=== PATIENT | male | born 1985 | race Caucasian/White ===

== ENCOUNTER → 2021-02-03 08:17 | Outpatient (CLI) | payer OTHER, SELFPAY | PROVIDERS: PCP Student in an Organized Health Care Education/Training Program; Visit Provider Family Medicine | DX: Z23 Encounter for immunization (principal) ==

== ENCOUNTER 2021-08-01 16:28 | Emergency (ER) | payer BC, SELFPAY ==
[2021-08-01 16:30] VITALS: BP 120/74; PULSE 61; RESP 18; TEMP 36.6; O2SAT 100; BMI 23.4
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
--- NOTE | 2021-08-01 16:45 | RAD_ITS ---
INDICATION: Trauma EXAMINATION/TECHNIQUE: X-RAY - XR Chest 1 View COMPARISON: None. FINDINGS: The lungs are clear. The cardiomediastinal silhouette is unremarkable. No pleural effusion or pneumothorax. No acute osseous abnormalities. RAD/Chest 1 View (Portable) IMPRESSION: No acute radiographic abnormalities. Electronically Signed: Sunny Norton MD at 18:20 EDT ,
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
[2021-08-01] MEDS: 0.9% Normal Saline 1,000 ML 999 ML IV (17:00)
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
[2021-08-01 17:29] LABS: Absolute Lymphocyte Count 1.69 X10^3/uL (0.83-4.51); Absolute Neutrophil Count 5.5 X10^3/uL (2.0-7.7); Basophil# 0.02 X10^3/uL; Basophil% 0.3 % (0-1); Eosinophil# 0.07 X10^3/uL; Eosinophils% 0.9 % (0-5); Hemoglobin 14.8 g/dL (13.0-16.5); Lymphocyte # 1.69 X10^3/ul (0.83-4.51); Lymphocyte % 21.9 % (19-41); Mean Corp Hgb Conc 34.4 g/dL (32-36); Mean Corpuscular Hgb 29.1 pg (27.0-32.0); Mean Corpuscular Volume 84.5 fL (80-94); Mean Platelet Vol. 12.1 fl (6.2-12.0); Monocyte# 0.38 X10^3/uL; Monocyte% 4.9 % (0-10); NRBC Flagged by Analyzer 0 % (0-5); Neutrophil # 5.52 X10^3/uL (2.7-7.7); Neutrophil % 71.7 % (47-70); Platelet Count 158 K/mm3 (150-450); RBC Distribution Width CV 11.9 % (11.6-14.6); RBC Distribution Width SD 36.7 fl (35.1-43.9); Red Blood Count 5.09 M/mm3 (4.6-6.2); White Blood Count 7.7 K/mm3 (4.4-11.0)
[2021-08-01 17:48] LABS: AST(SGOT) 29 U/L (15-37); Alanine Aminotransfer ALT/SGPT 36 U/L (16-61); Albumin, Serum 4.2 g/dL (3.2-5.0); Alkaline Phosphatase 66 U/L (45-117); Anion Gap 8 (5-15); BUN 26 mg/dL (7-18); BUN/Creat Ratio 20.5 RATIO (10-20); Bilirubin, Direct 0.21 mg/dL (0.00-0.30); Calcium,Total 9.4 mg/dL (8.5-10.1); Chloride 106 mmol/L (98-107); Creatinine, Serum 1.27 mg/dL (0.70-1.30); EST Glomerular Filtration Rate 68 mL/min (>60); Est Glom Filt Rate - Afr Amer 83 mL/min (>60); Estimated Creatinine Clearance 81.18 ml/min; Globulin 3.3 g/dL (2.2-4.2); Glucose 107 mg/dL (74-106); Potassium 3.4 mmol/L (3.5-5.1); Protein, Total 7.5 g/dL (6.4-8.2); Sodium Level 141 mmol/L (136-145)
[2021-08-01] MEDS: Lidocaine 1% /Epi 1:100 (20ml) 20 ML Vial INFILT (18:05)
--- NOTE | 2021-08-01 18:19 | ED.VIS.FALL ---
HPI HPI - Fall History of Present Illness Chief Complaint: Trauma PFSH PFSH Home Medications escitalopram oxalate [Lexapro] 10 mg PO DAILY 08/01/21 [History Last Taken Unknown] Allergy/AdvReac Type Severity Reaction Status Date / Time Penicillins [PCN] Allergy Hives Verified 08/01/21 16:29 Surgical History [place] teeth extracted Social History Smoking Status: Never smoker EXAM Physical Exam Const Vital Signs: 08/01/21 16:30 08/01/21 16:35 Temperature 98 F Temperature Source Oral Pulse Rate 61 Respiratory Rate 18 Respiratory Effort Normal Non-Labored Respiratory Depth Normal Respiratory Pattern Normal Blood Pressure 120/74 Blood Pressure Mean 89 Pulse Ox 100 Oxygen Delivery Method Room Air [facility] Lab Data Labs: Laboratory Results - last 24 hr 08/01/21 08/01/21 17:00 17:00 WBC 7.7 RBC 5.09 Hgb 14.8 Hct 43.0 MCV 84.5 MCH 29.1 MCHC 34.4 RDW Std Deviation 36.7 RDW Coeff of Esperanza 11.9 Plt Count 158 MPV 12.1 H Immature Gran % (Auto) 0.300 Neut % (Auto) 71.7 H Lymph % (Auto) 21.9 Richardson % (Auto) 4.9 Eos % (Auto) 0.9 Baso % (Auto) 0.3 Absolute Neuts (auto) 5.5 Absolute Lymphs (auto) 1.69 Nucleated RBC % 0 Sodium 141 Potassium 3.4 L Chloride 106 Carbon Dioxide 27.0 Anion Gap 8 BUN 26 H Creatinine 1.27 Estim Creat Clear Calc 81.18 Est GFR (MDRD) Af Amer 83 Est GFR (MDRD) Non-Af 68 BUN/Creatinine Ratio 20.5 H Glucose 107 H Calcium 9.4 Total Bilirubin 0.60 Direct Bilirubin 0.21 AST 29 ALT 36 Alkaline Phosphatase 66 Total Protein 7.5 Albumin 4.2 Globulin 3.3 Radiography Diagnostic Testing: Clinical Impression(s) from Imaging Studies Brain CT 08/01/21 16:45 IMPRESSION: No acute intracranial finding. Right-sided facial bone fractures as above. Electronically Signed: Desmond Anne MD at 18:01 EDT , Procedures Lacerations Right facial laceration: Length: 0.79 in Depth: Skin Shape: Linear Prep: Sterile Conditions and Shure-Clens Laceration repair: Irrigated and Lidocaine with epi Irrigated (ml): 200 Number of Sutures/Yanely: 4 Suture Information: Ethilon Comment: Of 0 placed 4 simple interrupted sutures to the right eyebrow, patient tolerated well. Edges approximated nicely. Patient tolerated well. Discharge Plan Triage Chief Complaint: Trauma ED Provider: Andrei Aguilar Dx/Rx/DC Orders Prescriptions: No Action escitalopram oxalate [Lexapro] 10 mg Tablet 10 mg PO DAILY RF: 0 Primary Care Provider: Bravo Roberto
[2021-08-01 18:35] VITALS: BP 132/78; PULSE 61; RESP 15; O2SAT 100
[2021-08-01] MEDS: Azithromycin 250 MG Tablet 500 MG PO (20:20)
[2021-08-01 20:21] VITALS: BP 141/92
== END 2021-08-01 20:27 | disposition home or self-care (01) ==
PROVIDERS: Emergency Provider Emergency Medicine; PCP Student in an Organized Health Care Education/Training Program; Visit Provider Emergency Medicine
DX: S02.40CA Maxillary fracture, right side, initial encounter for closed fracture (principal); S02.841A Fracture of lateral orbital wall, right side, initial encounter for closed fracture; S02.31XA Fracture of orbital floor, right side, initial encounter for closed fracture; S01.111A Laceration without foreign body of right eyelid and periocular area, initial encounter; S90.511A Abrasion, right ankle, initial encounter; S40.011A Contusion of right shoulder, initial encounter; E86.0 Dehydration; R55 Syncope and collapse; S90.01XA Contusion of right ankle, initial encounter; S80.01XA Contusion of right knee, initial encounter; V18.0XXA Pedal cycle driver injured in noncollision transport accident in nontraffic accident, initial encounter; Y93.55 Activity, bike riding
CPT/HCPCS: 12011; 70450; 70486; 71045; 73564; 73610; 80048; 80076; 85025; 93005; 96360; 99285; J7030